=== PATIENT | male | born 1995 | race Caucasian/White ===

== ENCOUNTER 2020-06-11 19:00 | Emergency (ER) | payer OTHER ==
[~2020-06-11] VITALS: Ht 172.7 cm; Wt 99.8 kg
[2020-06-11] MEDS ORDERED: CLARITIN10 MG PO (19:57)
[2020-06-11 21:16] VITALS: BP 136/74
== END 2020-06-11 21:17 | disposition home or self-care (01) ==
LOC: M.ERS 19:00
DX: S61.217A Laceration without foreign body of left little finger without damage to nail, initial encounter (principal); Z90.49 Acquired absence of other specified parts of digestive tract; W26.8XXA Contact with other sharp object(s), not elsewhere classified, initial encounter; Y93.89 Activity, other specified; Y92.89 Other specified places as the place of occurrence of the external cause; Y99.8 Other external cause status